=== PATIENT | male | born 1945 | race Caucasian/White ===

== ENCOUNTER → 2020-11-18 12:41 | Outpatient (CLI) | payer MEDICARE, SELFPAY ==
--- NOTE | ~2020-11-18 | XR_ITS ---
XR chest 2V DATE: 11/18/2020 12:57 INDICATION: Shortness of breath TECHNIQUE: PA and lateral views COMPARISON: None FINDINGS: Status post anterior cervical spine surgical fusion. Bilateral hyperinflation and relative flattening the diaphragm, consistent with COPD. No pulmonary in filtrate or consolidation, pleural effusion or pulmonary vascular congestion or pneumothorax. Normal heart size. No hilar or mediastinal enlargement. IMPRESSION: COPD Reviewed, dictated and finalized at location A. IMPRESSION: COPD
== END ==
PROVIDERS: PCP Family Medicine; Visit Provider Family Medicine
DX: R06.02 Shortness of breath (principal); J44.9 Chronic obstructive pulmonary disease, unspecified
CPT/HCPCS: 71046

== ENCOUNTER 2021-04-28 10:03 | Outpatient (CLI) | payer MEDICARE, SELFPAY ==
--- NOTE | 2021-04-28 12:47 | WPDPFTINT ---
PFT Procedure Performed PFT Procedure Performed Spirometry with Pre/Post Bronchodilator Plethysmography (Lung Vol) Diffusing Cap (DLCO) Flow Vol Loop PFT Interpretation This is a pulmonary function test with pre and post-bronchodilator spirometry, plethysmography and diffusing capacity. The test was performed and results interpreted in accordance with the 2019 and 2005 ATS/ERS Task Force guidelines respectively using the Global Lung Function Initiative-2012 reference equations. Patient demonstrated good effort and cooperation. Reproducibility criteria were met. The quality of the pre bronchodilator spirometry maneuver was Grade B and post bronchodilator spirometry maneuver was Grade A. Findings: Spirometry: there is decreased maximal expiratory airflow at all lung volumes with concave expiratory flow tracing. The contour the inspiratory flow tracing is normal. The pre bronchodilator FVC is 3.77 L, 91% predicted. The pre bronchodilator FEV1 is 2.21 L, 71% predicted. The FEV1: FVC ratio is 59%. The post bronchodilator FVC is 4.16 L, representing a 10% increase. The post bronchodilator FEV1 is 2.48 L, representing a 12% increase. Plethysmography: The total lung capacity is 9.15 L, 130% predicted. The functional residual capacity is 5.30 L, 141% predicted. The residual volume is 4.20 L, 167% predicted. Diffusing capacity: The absolute diffusion capacity is 21.6, 85% predicted. The diffusing capacity corrected for alveolar volume is 3.51, 91% predicted. Impression: There is a mild obstructive abnormality with significant improvement after inhaling a single dose of albuterol. The increase in residual volume is consistent with air trapping from an obstructive abnormality. Hyperinflation is present is demonstrated by the increase in functional residual capacity and total lung capacity and is consistent with an obstructive abnormality. The diffusing capacity is normal. There are no prior studies for comparison
== END 2021-04-28 10:04 | disposition home or self-care (01) ==
LOC: ANHPFT 10:04
PROVIDERS: PCP Family Medicine; Visit Provider Internal Medicine Pulmonary Disease
DX: R06.00 Dyspnea, unspecified (principal); R94.2 Abnormal results of pulmonary function studies
CPT/HCPCS: 94060; 94726; 94729

== ENCOUNTER 2021-10-26 00:26 | Day surgery (SDC) | payer MEDICARE, SELFPAY ==
[2021-10-11 10:09] VITALS: BMI 29.4
[2021-10-26 08:50] VITALS: BP 118/70; PULSE 63; RESP 18; TEMP 36.3; O2SAT 97
[2021-10-26] MEDS: LACTATED RINGERS 1,000 ML 150 ML IV CONT (09:02)
--- NOTE | 2021-10-26 09:18 | WPDGICN ---
Assessment and Plan Assessment and plan (1) History of colon polyps: Code(s): Z86.010 - Personal history of colonic polyps Status: Acute Assessment and Plan: Patient has a personal history of colon polyps at most recent colonoscopy 2016 in 5 years prior to that. Plan is for surveillance colonoscopy now and consider this at 5 year intervals. GI Consult Note Consult date/time: 10/26/21 09:18 HPI: Robby Morales is a 76 year old male Presents for screening colonoscopy. Patient has a prior history of colon polyps. Most recently 2016 had adenomatous colon polyp at time of prior colonoscopy. Patient reports his current weight appetite and bowel movements are normal. He denies abdominal pain. He has had no bleeding. Family history is noncontributory. [facility] Past Medical History Medical History (Updated 10/26/21 @ 09:20 by Zaid Mcintosh MD) Hyperlipemia Prediabetes Family History Family History Father Diabetes mellitus Family history of Alzheimer's disease Sibling Family history of elevated blood lipids Malignant neoplasm of prostate Grandparent Family history of lung cancer Family history of malignant neoplasm of breast in first degree relative Social History Social History Smoking status: Current every day smoker Tobacco type: cigarettes Alcohol intake: current Alcohol use details: 1 drink weekly Living arrangements: with family Spiritual care concerns: No Meds Home Medications and Allergies Home Medications Medication Instructions Recorded Confirmed Type albuterol sulfate 90 mcg/actuation 2 inh INHALATION Q4H PRN #8.5 g 09/14/21 10/11/21 Rx aerosol inhaler sildenafil 100 mg tablet 100 mg PO DAILY PRN #15 tablet 09/14/21 10/11/21 Rx Allergies Allergy/AdvReac Type Severity Reaction Status Date / Time No Known Allergies Allergy Verified 10/26/21 08:49 Vital Signs Vital Signs - 24 hr 10/26/21 08:50 Temperature 97.3 F L Pulse Rate 63 Respiratory Rate 18 Blood Pressure 118/70 Pulse Oximetry 97 Exam Narrative: Physical exam reveals patient be alert. Vital signs stable. HEENT exam is unremarkable. Patient is anicteric. Lungs are clear to auscultation and percussion. Heart is without murmur or extra sounds. Abdominal exam bowel sounds are present soft nontender with no organomegaly. Digital external rectal exam is normal.
--- NOTE | 2021-10-26 09:31 | P.PNAN_ITS ---
Anes - Initial Pre Proc Eval Procedure: Operation Date: 10/26/21 10:00 Proposed Procedures p Screening Colonoscopy - Zaid Mcintosh MD Date/Time: 10/26/21 09:31 Surgeon: Zaid Mcintosh MD Pre Op Diagnosis: neoplasm screening Patient Data Age: 76 Gender: M Height: 1.78 m Weight: 90.2 kg Last Vital Signs Temp 36.3 C L 10/26/21 08:50 Pulse 63 10/26/21 08:50 Resp 18 10/26/21 08:50 BP 118/70 10/26/21 08:50 Pulse Ox 97 10/26/21 08:50 Allergies Allergy/AdvReac Type Severity Reaction Status Date / Time No Known Allergies Allergy Verified 10/26/21 08:49 Home Medications Medication Instructions Recorded Confirmed Type albuterol sulfate 90 mcg/actuation 2 inh INHALATION Q4H PRN #8.5 g 09/14/21 10/11/21 Rx aerosol inhaler sildenafil 100 mg tablet 100 mg PO DAILY PRN #15 tablet 09/14/21 10/11/21 Rx Patient hx anesthesia problems: none Family hx anesthesia problems: none Results Review: All pre-operative results and documents have been reviewed as part of the pre-operative evaluation. [facility] Past Medical History Medical History (Updated 10/26/21 @ 09:20 by Zaid Mcintosh MD) Hyperlipemia Prediabetes Family History Family History Father Diabetes mellitus Family history of Alzheimer's disease Sibling Family history of elevated blood lipids Malignant neoplasm of prostate Grandparent Family history of lung cancer Family history of malignant neoplasm of breast in first degree relative Social History Social History Smoking status: Current every day smoker Tobacco type: cigarettes Alcohol intake: current Alcohol use details: 1 drink weekly Living arrangements: with family Spiritual care concerns: No Anes - Eval Final PreProcedure Day of Procedure 10/26/21 09:31 Patient weight: overweight Heart: regular rate and rhythm Lungs: clear to auscultation and normal air movement Airway: Mallampati scale class II Neurological: alert and oriented Last oral intake: >/= 8 hours ASA classification: III Emergent: no Anesthetic plan: proceed Anesthesia type and monitoring: general GIVS and standard monitoring Results Review: All pre-operative results and documents have been reviewed as part of the pre-operative evaluation. Informed Consent: The patient's anesthetic plan and its attendant risks and benefits were discussed with the patient/family/POA. Questions were solicited and answers provided to the satisfaction of the patient/family/POA.
[2021-10-26 10:10] VITALS: BP 108/63; PULSE 71; RESP 28; O2SAT 96
[2021-10-26 10:20] VITALS: BP 109/71; PULSE 69; RESP 13; O2SAT 97
[2021-10-26 10:30] VITALS: BP 123/73; PULSE 65; RESP 18; O2SAT 99
== END 2021-10-26 10:39 | disposition home or self-care (01) ==
PROVIDERS: PCP Family Medicine; Visit Provider Internal Medicine Gastroenterology
PROC: 0DJD8ZZ Inspection of Lower Intestinal Tract, Via Natural or Artificial Opening Endoscopic (ICD-10-PCS; CPT 45378; principal; 2021-10-26 10:00)
DX: Z12.11 Encounter for screening for malignant neoplasm of colon (principal); D12.0 Benign neoplasm of cecum; K57.30 Diverticulosis of large intestine without perforation or abscess without bleeding; E78.5 Hyperlipidemia, unspecified; R73.03 Prediabetes; F17.210 Nicotine dependence, cigarettes, uncomplicated; Z79.51 Long term (current) use of inhaled steroids
CPT/HCPCS: 45385; 88305; J2704; J7120

== ENCOUNTER → 2021-11-30 13:25 | Outpatient (CLI) | payer MEDICARE, SELFPAY ==
--- NOTE | ~2021-11-30 | XR_ITS ---
XR knee LT min 4V 11/30/2021 13:41 Indication: Left knee pain Procedure: 4 views left knee Comparison: No prior studies for comparison. Findings: Moderate joint effusion. There is mild compartment osteoarthritis. No acute fracture or tra umatic malalignment. No significant soft tissue abnormality. No foreign bodies. 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 2: Moderate joint effusion Reviewed, dictated and finalized at location A. 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 2: Moderate joint effusion
== END ==
PROVIDERS: PCP Family Medicine; Visit Provider Family Medicine
DX: R20.0 Anesthesia of skin (principal); M17.12 Unilateral primary osteoarthritis, left knee; M25.462 Effusion, left knee; M25.562 Pain in left knee
CPT/HCPCS: 73564

== ENCOUNTER → 2021-12-15 08:32 | Outpatient (CLI) | payer MEDICARE, SELFPAY ==
--- NOTE | ~2021-12-15 | MR_ITS ---
EXAMINATION: MR knee LT wo con DATE: 12/15/2021 09:07 INDICATION: Left knee pain. TECHNIQUE: Magnetic resonance imaging (MRI) of the left knee was performed without intravenous contra st. Sequences included axial PD-weighted FS FSE, coronal PD-weighted FSE and PD-weighted FS FSE, sagi ttal PD-weighted FSE, and sagittal T2-weighted FS FSE. COMPARISON: Left knee radiographs 11/30/2021 FINDINGS: Medial compartment: There is a complex tear involving body and posterior horn of medial meniscus. There is extensive part ial thickness cartilage loss of femoral condyle and tibial condyle. There is focal full-thickness car [place] loss of tibial condyle involving the central articular surface with mild subchondral edema-lik e signal intensity. There are tiny osteophytes. Lateral compartment: Lateral meniscus is normal. There is shallow partial-thickness cartilage loss of tibial condyle. Ther e is deep partial thickness cartilage loss of femoral condyle involving the central articular surface . There are tiny osteophytes. Patellofemoral compartment: There is cartilage surface irregularity of patella. Trochlear cartilage is normal. Ligaments and tendons: The anterior and posterior cruciate ligaments are normal. Medial collateral ligament is normal. There are changes of partial tear of fibular collateral ligament proximally. There is mild patellar tendin opathy. Fluid: There is a moderate-sized knee joint effusion. There is mild prepatellar and superficial infrapatella r bursitis. IMPRESSION: 1. Severe chondrosis of medial compartment, moderate chondrosis of lateral compartment, mild chondros is of patellofemoral compartment. 2. Tear of medial meniscus. 3. Moderate-sized knee joint effusion. Reviewed, dictated and finalized at location A. IMPRESSION: 1. Severe chondrosis of medial compartment, moderate chondrosis of lateral comp artment, mild chondrosis of patellofemoral compartment. 2. Tear of medial meniscus. 3. Moderate-sized knee joint effusion.
== END ==
PROVIDERS: PCP Family Medicine; Visit Provider Family Medicine
DX: S83.242A Other tear of medial meniscus, current injury, left knee, initial encounter (principal)
CPT/HCPCS: 73721

== ENCOUNTER 2022-03-22 00:47 | Day surgery (SDC) | payer MEDICARE, SELFPAY ==
[2022-03-17 14:07] VITALS: BMI 29.5
--- NOTE | 2022-03-17 14:18 | PC.NURSE ---
Report to the Outpatient Waiting Room, entrance under the green pavilion located off [facility], at time ___1000____ on date __03/22/22 . OR Time: ___1200 . Time changes happen often and if your time is changed the preop area will call you the afternoon before. - You and your visitor will be asked to self-screen and do not enter if you have any COVID symptoms. - Only one visitor and NO children visitors are allowed at this time. - The patient visitor is requested to leave or wait in car when not with patient due to restrictions. - A mask is required within the hospital. Patients may have clear liquids (water, carbonated beverages, clear teas, apple juice) until 3 hours prior to surgery (0900 AM) with a maximum of 20 ounces. - No food from midnight until time of surgery - Infants may have breast milk until 4 hours before surgery, formula 6 hours prior to surgery. - Children will be allowed to drink immediately following surgery. If applicable, please bring a bottle or sippy cup to assist with drinking. Juice, water, soda, and popsicles are readily available. For infants on formula, please bring formula the day of surgery. Pacifiers are allowed. Take the following medications with a SIP of water the morning of surgery: _TYLENOL & INHALER IF NEEDED_ Medications to discontinue per physician _N/A_, Date to take last dose Please no make-up, nail macedonian, hairspray, perfume, deodorant, or body powder the day of surgery. No jewelry (including any body piercings) or valuables the day of surgery, leave them at home. Please take a shower or bath the night before, or the morning of, surgery with an antibacterial soap. Wear comfortable, loose fitting clothing. Children are encouraged to wear pajamas. - Jewelry must be removed prior to entering the operating room. Rings and piercings that are not removed may be cut off. - The hospital will not accept responsibility for valuables. - Please leave all valuables, including medications, at home the day of surgery. If you are going home after surgery, a licensed industrial truck driver must drive you home. - NO public transportation without another adult. - We recommend that an adult stay with you for 24 hours following discharge. - We also recommend that you do not drive, make important decision, drink alcoholic beverages, or take any drugs that were not prescribed by your health care provider for at least 24 hours after your discharge time. For Pediatric surgeries, we recommend two adults accompany the child home (only one inside the building at this time). Follow any additional instructions given to you from your surgeon. If you or anyone in your household have experienced Covid symptoms in the past week, please notify your surgeon or the nurse liaison at the phone number below for possible testing. Telephone instructions given to ___PT and asked if any additional questions and then verbalized understanding. Patient advised to call surgeon office or pre surgery nurse liaison [phone] if any additional questions.
[2022-03-22] VITALS (11 sets, daily range): BP systolic 120–152; BP diastolic 60–78; PULSE 49–68; RESP 10–18; TEMP 36.3–36.4; O2SAT 94–100
--- NOTE | 2022-03-22 11:04 | P.PNAN_ITS ---
Anes - Initial Pre Proc Eval Procedure: Operation Date: 03/22/22 12:00 Proposed Procedures p Left Knee Arthroscopy with Meniscectomy - Alvarado Muñoz MD Date/Time: 03/22/22 11:04 Surgeon: Alvarado Muñoz MD Pre Op Diagnosis: left knee medial meniscal tear Patient Data Age: 76 Gender: M Height: 1.78 m Weight: 93.18 kg Allergies Allergy/AdvReac Type Severity Reaction Status Date / Time No Known Allergies Allergy Verified 03/17/22 14:04 Home Medications Medication Instructions Recorded Confirmed Type albuterol sulfate 90 mcg/actuation 2 inh inhalation Q4H PRN shortness 09/14/21 03/17/22 Rx aerosol inhaler (Ventolin HFA) of breath or wheezing #8.5 grams sildenafil 100 mg tablet 100 mg PO DAILY PRN sexual 09/14/21 03/17/22 Rx activity #15 tabs naproxen sodium 220 mg tablet 220 mg PO Q12H PRN Pain 12/22/21 03/17/22 History (Aleve) acetaminophen 650 mg 1,300 mg PO Q12H PRN Pain 03/17/22 03/17/22 History tablet,extended release (Tylenol Arthritis Pain) Patient hx anesthesia problems: none Family hx anesthesia problems: none Results Review: All pre-operative results and documents have been reviewed as part of the pre- operative evaluation. [facility] Past Medical History Medical History Hyperlipemia Medial meniscus tear left knee Nicotine abuse Prediabetes Surgical History Surgical History History of back surgery History of discectomy History of neck surgery Family History Family History Father Diabetes mellitus Family history of Alzheimer's disease Sibling Family history of elevated blood lipids Malignant neoplasm of prostate Multiple sclerosis Grandparent Family history of lung cancer Family history of malignant neoplasm of breast in first degree relative Social History Social History Smoking packs per day: 0.3 Smoking cigarettes per day: 6.0 Years smoked: 57 Smoking pack-years: 17.10 Smoking status: Former smoker Tobacco type: cigarettes Second hand tobacco smoke exposure: No Smoking end date: 11/26/20 Alcohol intake: current Drinks per week: 1 Alcohol use details: 1 drink weekly Substance use: never Substance use type: does not use Living arrangements: with family Spiritual care concerns: No Anes - Eval Final PreProcedure Day of Procedure 03/22/22 11:04 Patient weight: overweight Heart: regular rate and rhythm Lungs: clear to auscultation Airway: Mallampati scale class II Neurological: alert and oriented Last oral intake: >/= 8 hours ASA classification: III Emergent: no Anesthetic plan: proceed Anesthesia type and monitoring: general LMA and standard monitoring Results Review: All pre-operative results and documents have been reviewed as part of the pre- operative evaluation. Informed Consent: The patient's anesthetic plan and its attendant risks and benefits were discussed with the patient/family/POA. Questions were solicited and answers provided to the satisfaction of the patient/family/POA.
[2022-03-22] MEDS: KETOROLAC 15 MG/ML VIAL (*BKC) IV PUSH (11:10)
[2022-03-22] MEDS: LACTATED RINGERS 1,000 ML 30 ML IV CONT ×2 (11:10→13:16)
[2022-03-22] MEDS: ACETAMINOPHEN 500 MG TABLET 1000 MG PO (11:10)
[2022-03-22] MEDS: fentaNYL CITRATE INJ (*CRX) 100 MCG/2 ML VIAL 50 MCG IV PUSH (11:12)
--- NOTE | 2022-03-22 11:35 | WPDHPUPDATE1 ---
History and Physical Update Update Date/Time: 03/22/22 11:35 History and Physical has been reviewed, including an updated exam of the patient. There are NO changes in the patient's condition. Risks, benefits, and alternatives have been discussed and questions answered. Patient agrees to proceed with procedure.
[2022-03-22] MEDS: ceFAZolin 2 GM/D5W 50 ML 2 GM/50 ML BAG IVPB (12:00)
[2022-03-22] MEDS: LIDOCAINE HCL 1% PF 30 ML VIAL INFILTRATE (12:40)
--- NOTE | 2022-03-22 13:22 | P.OP_ITS ---
Procedure Note - Detailed Date of Procedure 03/22/22 Pre-op Diagnosis left knee medial meniscal tear Post-op Diagnosis Same Procedure Performed Left knee arthroscopy partial medial meniscectomy Surgeon Alvarado Muñoz MD Anesthesia General Description of Procedure The patient was identified and proper site identified and he was taken to the operating room, transferred to the OR table placing him supine taking care to pad the torso and extremities. After general anesthetic induction and intubation, a nonsterile tourniquet was placed high on the left thigh but was not inflated. The left lower extremity was positioned, prepped and draped in usual sterile fashion. 10 cc of 1% lidocaine was injected into the subcutaneous tissue in the area of the portals at start of the procedure, and an additional 10 at the end. The portals were established and the arthroscopy was carried out. Articular cartilage anteriorly and laterally did show some fraying fibrillation consistent with grade 2 and grade 3 changes. There was some fraying of the apex of the lateral meniscus. Cruciate ligaments were in continu ity. Medially there was complex tearing of the medial meniscus from the posterior horn well into the midbody. There was a portion of the meniscus that was folded under itself at the midbody. All the unstable meniscus was debrided back to a stable rim with basket forceps and a shaver. Throughout the procedure ArthroCare Wand was used for hemostasis. In the medial gutter there was a full synovium at the edge of the joint surface which was prominent. This was removed and the area cauterized. Lateral gutter and pouch were centrally clear. The knee was flushed with a copious amount of arthroscopic fluid and equipment was removed. Portals were closed with three O nylon suture and a sterile dressing was applied. He tolerated the procedure well, was awakened, extubated and taken to recovery area in stable condition. There were no known intraoperative complications. Estimated blood loss was negligible; he received perioperative antibiotics. Estimated Blood Loss 10 Tourniquet Time 0 Drains No Packing No Pathology None sent Complications No immediate complications Condition Stable Disposition PACU
[2022-03-22] MEDS: fentaNYL CITRATE INJ (*CRX) 100 MCG/2 ML VIAL 25 MCG IV PUSH ×6 (13:33→14:16)
[2022-03-22] MEDS: HYDROmorphone HCL INJ (*CRX) 1 MG/ML SYR 0.5 MG IV PUSH (14:22)
[2022-03-22] MEDS: oxyCODONE HCL (*CRX) 5 MG TAB IR PO (15:14)
== END 2022-03-22 16:30 | disposition home or self-care (01) ==
PROVIDERS: PCP Family Medicine; Visit Provider Orthopaedic Surgery
PROC: (CPT 29870; principal; 2022-03-22 12:00)
DX: M23.222 Derangement of posterior horn of medial meniscus due to old tear or injury, left knee (principal); M25.462 Effusion, left knee; M79.89 Other specified soft tissue disorders; E78.5 Hyperlipidemia, unspecified; R73.03 Prediabetes; Z87.891 Personal history of nicotine dependence; Z79.51 Long term (current) use of inhaled steroids
CPT/HCPCS: 29881; A9270; J0690; J1100; J1170; J1885; J2405; J2704; J3010; J7120

== ENCOUNTER → 2023-09-12 10:42 | Outpatient (CLI) | payer MEDICARE, SELFPAY ==
--- NOTE | ~2023-09-12 | XR_ITS ---
EXAMINATION: XR humerus RT, XR elbow RT 2V, XR shoulder RT min 2V DATE: 09/12/2023 11:24 INDICATION: Right shoulder and proximal humeral pain TECHNIQUE: 1. 4 views of the right shoulder including AP internally rotated, AP externally rotated, Grashey and transscapular Y views were obtained. 2. AP and lateral views of the right humerus were obtained on overlapping proximal and distal images. 3. AP and lateral views of the right elbow were obtained. COMPARISON: None. FINDINGS: Bone alignment is normal from the right shoulder through the elbow. No fracture. Polyarticular osteoa rthritis, moderate severity at the right acromioclavicular joint and mild at the right glenohumeral a nd elbow joints. No elbow joint effusion. Bone island at the right humeral head. Rotator cuff calcifi c tendinitis at the distal supraspinatus and/or infraspinatus tendons. Partially visualized plate and screw fixation for lower cervical anterior spinal fusion. Visualized portion of the lungs are clear. IMPRESSION: 1. 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 No acute osseous abnormality. 2. Right rotator cuff calcific tendinitis. Reviewed, dictated and finalized at location A. H RIB GRADER IMPRESSION: 1. 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 No acute osseous abnormality. 2. Right rotator cuff calcific tendinitis. IMPRESSION: 1. 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 No acute osseous abnormality. 2. Right rotator cuff calcific tendinitis.
== END ==
PROVIDERS: PCP Family Medicine; Visit Provider Nurse Practitioner
DX: M19.011 Primary osteoarthritis, right shoulder (principal); M75.31 Calcific tendinitis of right shoulder; M19.021 Primary osteoarthritis, right elbow
CPT/HCPCS: 73030; 73060; 73070

== ENCOUNTER 2023-09-25 08:16 | Outpatient (CLI) | payer MEDICARE, SELFPAY ==
--- NOTE | ~2023-09-25 | MR_ITS ---
MRI of the right shoulder Technique: Axial proton-density fat-sat images, coronal proton density fat-sat and T2 fat-sat images, and sagittal T1-weighted and T2 fat-sat images were acquired. Clinical History: Pain Findings: There is severe AC joint degenerative change, joint space narrowing, reactive marrow edema, and bony productive change, particularly at the acromion, with subacromial spur present. Coracoclavi cular, coracoacromial, coracohumeral ligaments are intact. Supraspinatus and infraspinatus tendons are intact, without partial or full-thickness tear. There is moderate supraspinatus tendinosis distally. Subscapularis tendon is intact, with minimal tendinosis. Tendon of long head of the biceps is intact. No definite labral tear identified. Inferior glenohumeral ligament is intact. No significant glenohumeral joint effusion or degenerative change. There is mild fluid distention of the subacromial/subdeltoid bursa. No muscle atrophy or weston a. Impression: Advanced AC joint degenerative change. Mild subacromial/subdeltoid bursitis. Rotator cuff tendinosis without tear. Reviewed, dictated and finalized at [facility]. Impression: Advanced AC joint degenerative change. Mild subacromial/subdeltoid bursitis. Rotator cuff tendinosis without tear.
--- NOTE | ~2023-09-25 | MR_ITS ---
EXAMINATION: MR humerus RT wo con DATE: 09/25/2023 09:22 INDICATION: Strain of muscle, fascia and tendons at the right upper arm presenting with limited range of motion the right shoulder and pain and numbness radiating to the right elbow. TECHNIQUE: Magnetic resonance imaging (MRI) of the right upper arm was performed without intravenous contrast. Sequences included axial, sagittal and coronal T1-weighted FSE and fluid sensitive FSE STIR . COMPARISON: None. FINDINGS: Bone alignment is normal. Normal marrow signal throughout with no reactive edema, fracture or patholo gic marrow replacing process. Small amount of fluid in the subacromial/subdeltoid bursa consistent wi th bursitis. Small amount of fluid in the pelvis also small amount of fluid along the long head bicep s tendon sheath disproportionate to the physiologic amount fluid in the glenohumeral joint space cons istent with mild bicipital tenosynovitis. Tendons and musculature in the right upper arm appear temitope l with no atrophy or abnormal muscle signal to suggest muscle strain. Visualized amount fluid in the right elbow joint. Neurovascular structures in the right upper arm appear unremarkable. No pathologic ally enlarged right axillary lymphadenopathy. IMPRESSION: 1. Right subacromial/subdeltoid bursitis and mild long head bicipital tenosynovitis. Otherwise unrema rkable right upper arm MRI. Reviewed, dictated and finalized at location A. IMPRESSION: 1. Right subacromial/subdeltoid bursitis and mild long head bicipital tenosynov itis. Otherwise unremarkable right upper arm MRI.
== END 2023-09-25 08:17 ==
LOC: GOSHIMG 08:17
PROVIDERS: PCP Family Medicine; Visit Provider Nurse Practitioner
DX: S46.211A Strain of muscle, fascia and tendon of other parts of biceps, right arm, initial encounter (principal); M75.51 Bursitis of right shoulder; M75.21 Bicipital tendinitis, right shoulder; X58.XXXA Exposure to other specified factors, initial encounter
CPT/HCPCS: 73218; 73221

== ENCOUNTER 2023-11-02 08:00 | Outpatient (RCR) | payer MEDICARE, SELFPAY ==
[2023-10-04 08:02] VITALS: BP_SYST 84
--- NOTE | 2023-10-04 08:58 | OPREHPOC ---
Outpatient Therapy Plan of Care This is a Multidisciplinary Plan of Care that may contain components documented by all disciplines (PT, OT, and ST.) PT Problem 1 PT Problem #1 Knowledge Deficit PT Goal 1 Goal Pt to be IND with issued HEP Target Visit 8 PT Problem 2 PT Problem #2 Pain PT Goal 1 Goal Pt to report shoulder pain no greater than 3/10 in the last week. Target Visit 8 PT Goal 2 Goal Pt to report 75% improvement in overall symptoms Target Visit 8 PT Problem 3 PT Problem #3 Impaired Range of Motion PT Goal 1 Goal Pt to improve active shoulder abduction ROM to 120 deg without an increase in pain. Target Visit 8 PT Goal 2 Goal Pt to improve functional shoulder int rot to within 2 spinal levels of L side. Target Visit 8 PT Problem 4 PT Problem #4 Impaired Strength PT Goal 1 Goal Pt to improve R shoulder strength to grossly 4+/5. Target Visit 8 PT Goal 2 Goal pt to be able to lift 5lb overhead without compensations.
--- NOTE | 2023-10-04 08:59 | PTOPEVAL1 ---
Assessment and note entered by Melania Montoya, PT, DPT Evaluation Information Assessment Status Evaluation Diagnosis R shoulder pain Onset 1 month Subjective Information Pt reports R shoulder pain for the last month, he declines any shoulder issued prior to that. He states he was working with a saw and the saw pushed his arm into shoulder extension with a good amount of force. 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 He states his pain is not bad if he does not lift it above shoulder height. He reports it wakes him up in the night. Pt likes to do a lot of wood working. Reported Pain Level Pain Score 0: Self Report Assessment PT Clinical Summary Robby presents to therapy today for his initial evaluation with a diagnosis of R shoulder pain. He demonstrates s/s consistent with R RTC tendonitis . He demonstrates decreased active and passive R shoulder ROM as well as decreased strength when compared to his L shoulder. He functional mobility is limited by strength and pain. Skilled therapy services are indicated to address the deficits noted above, to manage pain, and to return to PLOF . Plan of Care Interventions Electrical Stimulation,Gait Training,Hot Pack/Cold Pack,Manual Therapy,Neuro Re-education,Patient/ Caregiver Educati,Therapeutic Activities, Therapeutic Exercise PT Services Indicated Yes Treatment Frequency and 2x/wk for 8 visits Duration These treatments will address the objective and functional deficits as defined above. The patient will be advanced safely and appropriately in order for the patient to progress towards his/her prior level of function. Additional exercises will be introduced and as well as a comprehensive home exercise program upon discharge, if needed, ?to ensure carryover of functional gains achieved in the clinic. This treatment plan has been reviewed and agreement upon by the patient.
--- NOTE | 2023-10-24 12:42 | PCPTNOTE ---
Patient called to cancel due to being out of town.
--- NOTE | 2023-10-26 10:13 | PCPTNOTE ---
Patient canceled this appointment due to being out of town.
[2023-11-02 08:00] VITALS: BP_SYST 140
--- NOTE | 2023-11-02 10:52 | PTOPDC ---
Assessment and note entered by Melania Montoya, PT, DPT Evaluation Information Assessment Status Discharge Diagnosis R shoulder pain Onset 1 month Subjective Information Pt states his shoulder is about the same as when he started therapy. He states his shoulder does not keep him from doing anything, other than sleeping. He states he still has severe difficultly getting to sleep because of his shoulder. Reported Pain Level Pain Score 2: Self Report Assessment PT Clinical Summary Robby presents to therapy today for his progress report following 5 visits of skilled therapy to treat his diagnosis of R shoulder pain. He demonstrates improve shoulder motion in all directions with decreased pain reports as well. He demonstrates improved shoulder strength but still decreased from his L shoulder. His HEP was progressed this date. He plans to continue his HEP IND until his follow up with his PCP in December. Discussed treatment option if still having pain at his follow up. Pt will be d/c'ed at this time per his request. Plan of Care PT Services Indicated No
== END 2023-11-02 12:49 | disposition home or self-care (01) ==
LOC: ANHGOSHPT 08:00
PROVIDERS: PCP Family Medicine; Visit Provider Nurse Practitioner
DX: M25.511 Pain in right shoulder (principal)
CPT/HCPCS: 97014; 97110; 97112; 97161; 97530; G0283

== ENCOUNTER 2024-08-13 13:07 | Outpatient (CLI) | payer MEDICARE, SELFPAY ==
--- NOTE | ~2024-08-13 | CT_ITS ---
EXAMINATION: CT abdomen pelvis wo/w con DATE: 08/13/2024 13:46 INDICATION: Gross hematuria TECHNIQUE: Computed tomography (CT) of the abdomen and pelvis was performed without intravenous contr ast. CT of the abdomen and pelvis was then performed with a total of 130 mL Omnipaque-350 intravenous contrast using a double-bolus technique for simultaneous opacification of the renal parenchyma and r enal collecting system. Automated exposure control and iterative reconstruction technique were employ ed. The dose-length product was 1940.13 mGy-cm. COMPARISON: None FINDINGS: Discoid atelectasis in the lingula, right middle and bilateral lower lobes. Heart size normal. Athero sclerotic coronary artery calcific lesion. No pericardial effusion. Small sliding-type hiatal hernia. Liver, gallbladder, spleen, pancreas, bilateral adrenal glands are normal. Bilateral nonobstructing renal stones measuring 5 mm the upper pole of the right kidney and 4 mm at the lower pole of the left kidney. 1.4 cm exophytic cyst at the mid right kidney. No ureteral stones or hydronephrosis. No urot helial irregularities identified along the bilateral renal collecting systems and contrast opacified portions of the bilateral ureters. There is a 2.2 cm mass with lobular margins along the nondependent lateral wall of the bladder suspicious for bladder malignancy. There are some trabeculation of the b ladder wall is suggestion of developing small diverticulum along the left anterior bladder. Mild pros tatomegaly measuring 4.6 x 3.0 cm. Mild sigmoid diverticulosis without adjacent from trace stranding to suggest diverticulitis. Bowels are otherwise normal including a normal appendix. There is calcifie d atherosclerosis of the normal caliber abdominal aorta and many of the other arteries. No free intra peritoneal gas or fluid. No pathologically enlarged abdominal or pelvic lymphadenopathy. Is severe lo wer lumbar spondylosis. IMPRESSION: 1. 2.2 cm intraluminal mass at the right-sided the bladder which concerning for bladder cancer. Recom mend cystoscopy for further evaluation. 2. Bilateral nonobstructing nephrolithiasis. 3. Small sliding-type hiatal hernia. Reviewed, dictated and finalized at location A. [facility] IMPRESSION: 1. 2.2 cm intraluminal mass at the right-sided the bladder which concerning for bladder cancer. Recommend cystoscopy for further evaluation. 2. Bilateral nonobstructing nephrolithiasis. 3. Small sliding-type hiatal hernia.
--- OUTSIDE RECORDS SUMMARY | 2024-08-13 13:17 | XMS_ITS | Referral Summary ---
Author Organization [facility] Address [address] [place] [address] Care Team Providers Care Barrel Drum Cutter Name Role Phone Alexsander Denny MD Primary Care Provider [phone] Source Comments [facility],non-owned Affiliates and Associated Physician Practices is amultiple site organization consisting of ambulatory clinics and hospital sitesin [place], [place], [place] and [place]. This disclosure is being madepursuant to the Care Everywhere program and may not contain all information available regarding this patient. Last updated 18.[facility] Social History Tobacco Use Types Packs/Day Years Used Date Smoking Tobacco: Never Assessed Sex and Gender Information Value Date Recorded Sex Assigned at Not on file Gender Identity Not on file Sexual Orientation Not on file Plan of Treatment Not on file Care Teams Barrel Drum Cutter Relationship Specialty Start Date End Date Alexsander Denny MD [address] [place] [id number] PCP - General 10/27/21
--- OUTSIDE RECORDS SUMMARY | 2024-08-13 13:17 | XMS_ITS | Patient Health Summary ---
Author Organization [facility] Address [address] [place] [address] Care Team Providers Care Lease Operator Name Role Phone Alexsander Denny MD Primary Care Provider [phone] Note from [facility] [place],non-owned Affiliates and Associated Physician Practices is amultiple site organization consisting of ambulatory clinics and hospital sitesin [place], [place], [place] and [place]. This disclosure is being madepursuant to the Care Everywhere program and may not contain all information available regarding this patient. Last updated 18.[facility] Social History Tobacco Use Types Packs/Day Years Used Date Smoking Tobacco: Never Assessed Sex and Gender Information Value Date Recorded Sex Assigned at Not on file Gender Identity Not on file Sexual Orientation Not on file Procedures * GROSS + MICRO EXAM(Performed 04/30/1999) Results * GROSS + MICRO EXAM (04/30/1999 11:12 AM CDT) Result CASE NUMBER [id number] Comment: ORDERING PHYSICIAN ??SANDHYA EVANS SPECIMEN TYPE ?Intervertebral Disc-C5-6 Date ? 04/30/1999 Physician ?Dr. Adam Gross Description ? The specimen is received in a single formalin-filled container labeled with the patient's name and disc C5-6 and consists of numerous jiménez white feathery irregularly-shaped tissue fragments which measure in aggregate 3.5 x 2 x .5 cm. ??Certifed Refrigeration Operator sections are submitted in one cassette. ??LM/jmc Microscopic Exam ? Microscopic examination reveals cartilaginous fragments with fibrillary degenerative change. ??No nerve fragments are seen. No evidence of any granulomas, malignancy is seen. A few unremarkable bony spicules are also noted. ??SR/jmc Diagnosis ? I. ?Disc, C5,C6 ?A. ?Nucleus pulposus with degenerative change ?B. ?Bone. SR/C Construction Trades Teacher ? [facility] Pathologist ?Malika Meza M.D. [place]. ?05/03/1999 1216 <1> CPT code ? 40836/42568 MISCELLANEOUS SAMPLES / Unknown 04/30/1999 11:12 AM CDT 04/30/1999 11:12 AM CDT Historical Provider LAB - PATHOLOGY/C YTOLOGY ORDERABLES Care Teams Lease Operator Relationship Specialty Start Date End Date Alexsander Denny MD [address] [place] [phone] PCP - General 10/27/21
--- OUTSIDE RECORDS SUMMARY | 2024-08-13 13:17 | XMS_ITS | Clinical Summary ---
Author Organization [facility] Address [address] [place] [phone] Phone Care Team Providers Care Pastry Supervisor Name Role Phone Alexsander Denny MD Primary Care Provider [phone] Social History Tobacco Use Types Packs/Day Years Used Date Smoking Tobacco: Never Assessed Sex and Gender Information Value Date Recorded Sex Assigned at Not on file Legal Sex Male 12:44 PM CDT Gender Identity Not on file Sexual Orientation Not on file Plan of Treatment Health Maintenance Due Date Last Done Comments DTAP/TDAP/TD VACCINES (1 - Tdap) 09/17/1966 PNEUMOCOCCAL VACCINE 65+ YEARS (1 of 1 - PCV) 09/17/18 98 ZOSTER VACCINE (1 of 2) 09/17/1997 RSV VACCINE (60+ or ) (1 - 1-dose 75+ series) 09/17/2022 INFLUENZA VACCINE (#1) 2024 Insurance MEDICARE PART A AND B [employer] MEDICARE SUPP AESSI Care Teams Pastry Supervisor Relationship Specialty Start Date End Date Alexsander Denny MD [address] [place] [address] PCP - General Family Practice 02/23/17
--- OUTSIDE RECORDS SUMMARY | 2024-08-13 13:17 | XMS_ITS | Clinical Summary ---
Author Organization [facility] Address [address] [place] [address] Care Team Providers Care Supply Chain Manager Name Role Phone Alexsander Denny MD Primary Care Provider [phone] Source Comments [facility],non-owned Affiliates and Associated Physician Practices is amultiple site organization consisting of ambulatory clinics and hospital sitesin [place], [place], [place]. This disclosure is being madepursuant to the Care Everywhere program and may not contain all information available regarding this patient. Last updated 18.[facility] Social History Tobacco Use Types Packs/Day Years Used Date Smoking Tobacco: Never Assessed Sex and Gender Information Value Date Recorded Sex Assigned at Not on file Gender Identity Not on file Sexual Orientation Not on file Plan of Treatment Health Maintenance Due Date Last Done Comments HEPATITIS C SCREENING 09/13/1965 DTAP/TDAP/TD VACCINES (1 - Tdap) 09/17/1966 PNEUMOCOCCAL VACCINE 50+ (1 of 1 - PCV) 09/17/1997 ZOSTER VACCINE (1 of 2) 09/17/1997 Respiratory Syncytial Virus (RSV) Vaccine Pt: or over 60 yrs (1 - 1-dose 75+ series) 09/17/2022 COVID-19 VACCINE ( - 2023-2 5 season) 2024 INFLUENZA VACCINE (#1) 2024 DEPRESSION SCREENING 07/10/2024 HEPATITIS B VACCINE Aged Out No longe r eligible based on patient's age to complete this topic HIB VACCINE Aged Out No longer eligi ble based on patient's age to complete this topic HPV VACCINE Aged Out No longer eligi ble based on patient's age to complete this topic MENINGOCOCCAL (Group B) VACCINE Aged Out No longer eligible based on patient's age to complete this topic MENINGOCOCCAL VACCINE Aged Out No alexey sruthi eligible based on patient's age to complete this topic Care Teams Supply Chain Manager Relationship Specialty Start Date End Date Alexsander Denny MD [address] [place] [address] PCP - General 10/27/21
[2024-08-13 20:46] LABS: Estimated Glomerular Filt Rate 59
== END 2024-08-13 13:08 | disposition home or self-care (01) ==
PROVIDERS: PCP Family Medicine; Visit Provider Urology
DX: N20.0 Calculus of kidney (principal); K44.9 Diaphragmatic hernia without obstruction or gangrene; R31.9 Hematuria, unspecified
CPT/HCPCS: 74178; Q9967

== ENCOUNTER 2024-10-03 00:07 | Day surgery (SDC) | payer MEDICARE, SELFPAY ==
--- NOTE | 2024-09-19 13:38 | PC.NURSE ---
Report to the Outpatient Waiting Room, entrance under the green pavilion located off [facility], at time _7 AM on date __10/03/24 . Planned Procedure Time: __9 AM .? Time changes happen often and if your time is changed the preop area will call you the afternoon before. - You and your visitor will be asked to self-screen and do not enter if you have any COVID symptoms. Please call surgeon if you need to reschedule. - A mask is optional within the hospital at this time. Patients may have clear liquids (water, carbonated beverages, clear teas, apple juice) until 3 hours prior to surgery ( 6 AM) with a maximum of 20 ounces. - No food from midnight until time of surgery and no smoking, or chewing tobacco (or any form of nicotine). No chewing gum, candy or mints. Take only the following medications with a SIP of water on the morning of surgery: ____INHALER IF NEEDED DO NOT STOP ANY OF YOUR OTHER PRESCRIPTION MEDICATIONS PRIOR TO SURGERY EXCEPT THE FOLLOWING Hold all vitamins and supplements for 3 days per anesthesiologist. Medications to discontinue per physician NONE Please no make-up, nail bangladeshi, hairspray, perfume, deodorant, or body powder the day of surgery.? No jewelry (including any body piercings) or valuables the day of surgery, leave them at home.? Please take a shower or bath the night before, or the morning of, surgery with an antibacterial soap.? Wear comfortable, loose fitting clothing.? Children are encouraged to wear pajamas. - Jewelry must be removed prior to entering the operating room.? Rings and piercings that are not removed may be cut off. - The hospital will not accept responsibility for valuables.? - Please leave all valuables, including medications, at home the day of surgery. If you are going home after surgery, a licensed class a regional truck driver must drive you home.? - NO public transportation without another adult if you receive anesthesia. - We recommend that an adult stay with you for 24 hours following discharge. - We also recommend that you do not drive, make important decision, drink alcoholic beverages, or take any drugs that were not prescribed by your health care provider for at least 24 hours after your discharge time. Follow any additional instructions given to you from your surgeon. Telephone instructions given to __PATIENT and asked if any additional questions and then verbalized understanding. Patient advised to call surgeon office or pre surgery nurse liaison [phone] if any additional questions.
[2024-09-19 13:52] VITALS: BMI 31.8
[2024-10-03] VITALS (11 sets, daily range): BP systolic 96–151; BP diastolic 56–79; PULSE 49–66; RESP 10–18; TEMP 36.2; O2SAT 93–100
--- OUTSIDE RECORDS SUMMARY | 2024-10-03 00:11 | XMS_ITS | Clinical Summary ---
Author Organization [facility] Address [address] [place] [address] Care Team Providers Care Party Supply Specialist Name Role Phone Alexsander Denny MD Primary Care Provider [phone] Source Comments [facility],non-owned Affiliates and Associated Physician Practices is amultiple site organization consisting of ambulatory clinics and hospital sitesin [place], [place], [place] and [place]. This disclosure is being madepursuant to the Care Everywhere program and may not contain all information available regarding this patient. Last updated 18.[facility] Social History Tobacco Use Types Packs/Day Years [...] to complete this topic MENINGOCOCCAL (Group B) VACC INE SHARED DECISION-MAKING Aged Out No longer eligibl e based on patient's age to complete this topic MENINGOCOCCAL GROUPS A/C/Y/W VACCINE Aged Out No longer eligible b ased on patient's age to complete this topic Care Teams Party Supply Specialist Relationship Specialty Start Date End Date Alexsander Denny MD [address] [place] [place] [address] PCP - General 10/27/21
--- OUTSIDE RECORDS SUMMARY | 2024-10-03 00:11 | XMS_ITS | Clinical Summary ---
Author Organization [facility] Address [address] [place] [phone] Phone Care Team Providers Care Guest Services Officer Name Role Phone Alexsander Denny MD Primary Care Provider [phone] Social History Tobacco Use Types Packs/Day Years Used Date Smoking Tobacco: Never Assessed Sex and Gender Information Value Date Recorded Sex Assigned at Not on file Legal Sex Male 12:44 PM CDT Gender Identity Not on file Sexual Orientation Not on file Plan of Treatment Health Maintenance Due Date Last Done Comments DTAP/TDAP/TD VACCINES (1 - Tdap) 09/17/1966 PNEUMOCOCCAL VACCINE 50+ YEARS (1 of 1 - PCV) 09/17/18 98 ZOSTER VACCINE (1 of 2) 09/17/1997 RSV VACCINE (60+ or ) (1 - 1-dose 75+ series) 09/17/2022 INFLUENZA VACCINE (#1) 2024 Insurance MEDICARE PART A AND B AET[employer] MEDICARE SUPP AESSI Care Teams Guest Services Officer Relationship Specialty Start Date End Date Alexsander Denny MD [address] [place] [phone] PCP - General Family Practice 02/23/17
--- NOTE | 2024-10-03 06:16 | WPDHPUPDATE1 ---
History and Physical Update Update Date/Time: 10/03/24 06:16 History and Physical has been reviewed, including an updated exam of the patient. There are NO changes in the patient's condition. Risks, benefits, and alternatives have been discussed and questions answered. Patient agrees to proceed with procedure.
[2024-10-03] MEDS: LACTATED RINGERS 1,000 ML 30 ML IV CONT ×2 (06:25→08:34)
--- NOTE | 2024-10-03 07:12 | WPDANESEPPF ---
Anes - Initial Pre Proc Eval Procedure: Operation Date: 10/03/24 07:30 Proposed Procedures p Trans Urethral Resection Bladder Tumor with Gemcitabine Instillation - Orlando Reyes MD Date/Time: 10/03/24 07:12 Surgeon: Orlando Reyes MD Pre Op Diagnosis: bladder tumor Patient Data Age: 79 Gender: M Height: 1.78 m Weight: 100.2 kg Last Vital Signs Temp 97.2 F L 10/03/24 06:00 Pulse 66 10/03/24 06:00 Resp 18 10/03/24 06:00 BP 141/65 H 10/03/24 06:00 Pulse Ox 98 10/03/24 06:00 O2 Del Method Room Air 10/03/24 06:00 Allergies Allergy/AdvReac Type Severity Reaction Status Date / Time No Known Allergies Allergy Verified 09/19/24 13:38 Home Medications ?Medication ?Instructions ?Recorded ?Confirmed ?Type albuterol sulfate 90 mcg/actuation 2 inh inhalation Q4H PRN shortness 06/11/24 10/03/24 Rx aerosol inhaler of breath or wheezing #8.5 grams sildenafil 100 mg tablet 100 mg PO DAILY PRN sexual 06/11/24 09/19/24 Rx activity #15 tabs Patient hx anesthesia problems: none Family hx anesthesia problems: none Results Review: All pre-operative results and documents have been reviewed as part of the pre-operative evaluation. [facility] Past Medical History Medical History Nicotine abuse Prediabetes Hyperlipemia Surgical History Surgical History History of neck surgery History of discectomy History of back surgery Medial meniscus tear left knee arthroscopy partial medial meniscectomy March 22, 2022 Family History Family History Father Diabetes mellitus Family history of Alzheimer's disease Sibling Family history of elevated blood lipids Malignant neoplasm of prostate Multiple sclerosis Grandparent Family history of lung cancer Family history of malignant neoplasm of breast in first degree relative Social History Social History Smoking packs per day: 0.25 Smoking cigarettes per day: 5.0 Years smoked: 57 Smoking pack-years: 14.25 Smoking status: Former smoker Tobacco type: cigarettes Second hand tobacco smoke exposure: No Smoking end date: 07/10/20 Alcohol intake: current Drinks per week: 1 Alcohol use details: 1 drink weekly Substance use: never Substance use type: does not use Lack of Transportation: No Lack of Food: Never True Current Housing: I Have Housing Concerned About Future Housing: No Difficulty Paying Gas/Electric Bills: No Difficulty Paying for Meds: No Currently Unemployed: No Education: High School Diploma/GED Difficulty w/ Childcare or Family Care: No Living arrangements: with family Occupation/Education: retired Gender identity (if verbalized by the patient): Male Sexual Orientation (if Verbalized by the Patient): Straight or Heterosexual Spiritual care concerns: No Anes - Eval Final PreProcedure Day of Procedure 10/03/24 07:12 Patient weight: obese Lungs: normal air movement Airway: Mallampati scale class II and special considerations (Edentulous. ) Neurological: alert and oriented Last oral intake: >/= 8 hours ASA classification: III Emergent: no Anesthetic plan: proceed Anesthesia type and monitoring: general LMA and standard monitoring Other findings: COPD, ex smoker, borderline hyperlipidemia. Results Review: All pre-operative results and documents have been reviewed as part of the pre-operative evaluation. Informed Consent: The patient's anesthetic plan and its attendant risks and benefits were discussed with the patient/family/POA. Questions were solicited and answers provided to the satisfaction of the patient/family/POA.
[2024-10-03] MEDS: ceFAZolin 2 GM/D5W 50 ML 2 GM/50 ML BAG IVPB (07:25)
--- NOTE | 2024-10-03 07:50 | W.PM.PROC2 ---
Procedure Note - Detailed Date of Procedure 10/03/24 Pre-op Diagnosis Bladder tumor Post-op Diagnosis Same Procedure Performed TURBT (medium, 3cm) Surgeon Orlando Reyes MD Anesthesia General Description of Procedure The patient was brought to the operative suite where he is prepped and draped in a routine sterile fashion while in the dorsal lithotomy position. This is done after the uneventful administration of general LMA anesthetic. 2% Xylocaine jelly is introduced intraurethrally and allowed to stand for an appropriate period of time. A 24F resectoscope sheath was placed in the bladder and the bladder is circumferentially inspected carefully. 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 This area is resected in its entirety with an attempt made to include detrusor muscle for pathological evaluation of invasion. The base and periphery of this resected side is cauterized with a loop electrode. The bladder is emptied and the resectoscope was removed. An 18F urethral catheter was placed to drainage. The patient is taken to the recovery room having tolerated this procedure well. Drains No Pathology Yes Complications No immediate complications
--- NOTE | 2024-10-03 07:53 | P.OP_ITS ---
Procedure Note - Detailed Date of Procedure 10/03/24 Pre-op Diagnosis Bladder tumor Post-op Diagnosis Same Procedure Performed Gemcitabine instillation Surgeon Orlando Reyes MD Anesthesia General and None Description of Procedure With the patient in the supine position, a 16F Monson catheter is placed using s terile technique. Using a protective facemask, gown and double layer of gloves Gemcitabine 2gm in 100cc saline is administered through the catheter/into the bladder. The catheter is then plugged. Patient was instructed to lie supine x20min, then to roll both the left and right x20 min. each. Total dwell time will be 60 min., after which the bladder will be drained and catheter removed. Drains No Pathology None sent Condition Stable
[2024-10-03] MEDS: SODIUM CHLORIDE 0.9% IV 23.7 ML, GEMCITABINE HCL 1,000 MG BLADDER ×2 (08:12)
[2024-10-03] MEDS: fentaNYL CITRATE INJ (*CRX) 100 MCG/2 ML VIAL 25 MCG IV PUSH ×2 (08:23→08:36)
--- NOTE | 2024-10-03 09:22 | SUR.PHASEI ---
0912 - arteaga drained. 150cc of NS instilled. catheter removed. pt lucio well
[2024-10-03] MEDS: oxyCODONE HCL (*CRX) 5 MG TAB IR PO (09:48)
== END 2024-10-03 10:29 | disposition home or self-care (01) ==
PROVIDERS: PCP Family Medicine; Visit Provider Urology
PROC: 0TBB8ZZ Excision of Bladder, Via Natural or Artificial Opening Endoscopic (ICD-10-PCS; CPT 52235; principal; 2024-10-03 07:30)
DX: C67.8 Malignant neoplasm of overlapping sites of bladder (principal); E78.5 Hyperlipidemia, unspecified; R73.03 Prediabetes; E66.9 Obesity, unspecified; Z68.31 Body mass index [BMI] 31.0-31.9, adult; Z79.51 Long term (current) use of inhaled steroids; Z98.890 Other specified postprocedural states; Z98.1 Arthrodesis status; Z87.891 Personal history of nicotine dependence; Z80.42 Family history of malignant neoplasm of prostate; Z80.3 Family history of malignant neoplasm of breast; Z80.1 Family history of malignant neoplasm of trachea, bronchus and lung
CPT/HCPCS: 52235; 51720; 88305; A9270; J0690; J1100; J2003; J2405; J2704; J3010; J7120; J9201

== ENCOUNTER 2025-03-31 16:26 | Outpatient (CLI) | payer MEDICARE, SELFPAY ==
--- NOTE | ~2025-03-31 | US_ITS ---
EXAMINATION: US soft tissue UE RT COMPARISON: None HISTORY: mass at ring finger MPJ flexion crease TECHNIQUE: Multiple yanez scale and color Doppler sonographic images obtained FINDINGS: Correlating with the palpable area there is a cystic focus associated with the anterior dorsal aspect of the metacarpal joint measuring 5 x 5 x 3 mm with no abnormal flow and no gross communication with the adjacent joint space. IMPRESSION: Nonspecific cystic focus possibly atypical ganglion. MRI recommended to further assess. Reviewed, dictated and finalized at location A. IMPRESSION: Nonspecific cystic focus possibly atypical ganglion. MRI recommende d to further assess.
--- OUTSIDE RECORDS SUMMARY | 2025-03-31 16:28 | XMS_ITS | Clinical Summary ---
Author Organization [facility] [employer] Address [address] [place] [address] Care Team Providers Care Accountant Clerk Name Role Phone Alexsander Denny MD Primary Care Provider [phone] Source Comments [facility],non-owned Affiliates and Associated Physician Practices is amultiple site organization consisting of ambulatory clinics and hospital sitesin [place], [place], [place] and [place]. This disclosure is being madepursuant to the Care Everywhere program and may not contain all information available regarding this patient. 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 Gender Identity Not on file Sexual Orientation Not on file Plan of Treatment Health Maintenance Due Date Last Done Comments HEPATITIS C SCREENING 09/13/1965 DTAP/TDAP/TD VACCINES (1 - Tdap) 09/17/1966 PNEUMOCOCCAL VACCINE 50+ (1 of 1 - PCV) 09/17/1997 ZOSTER VACCINE (1 of 2) 09/17/1997 Respiratory Syncytial Virus (RSV) Vaccine Pt: or over 60 yrs (1 - 1-dose 75+ series) 09/17/2022 DEPRESSION SCREENING 07/10/2024 MEDICARE AWV CALENDAR YEAR 2024 COVID-19 VACCINE ( - 2023-2 5 season) 2025 INFLUENZA VACCINE (#1) 2025 HEPATITIS B VACCINE Aged Out No longe [...] on patient's age to complete this topic Insurance AETNA AETNA MEDICARE ADV SELF PAY NO INSURANCE Member Subscriber Plan / Payer (Ef fective for All Dates) Name:Sandhya Morales Member ID:Not on file Relation to Subscriber:Not on file Name:SANDHYA MORALES Subscriber ID:Not on file (Home) Address: [address] [place] [id number] Payer ID:Not on file Group ID:Not on file Type:Self Pay Address: [place], [place] Care Teams Accountant Clerk Relationship Specialty Start Date End Date Alexsander Denny MD [address] [place] [address] [facility] - General 10/27/21
--- OUTSIDE RECORDS SUMMARY | 2025-03-31 16:28 | XMS_ITS | Clinical Summary ---
Author Organization [facility] Address [address] [place] [phone] Phone Care Team Providers Care Segmental Paver Installer Name Role Phone Alexsander Denny MD Primary Care Provider [phone] Social History Tobacco Use Types Packs/Day Years [...] 1-dose 75+ series) 09/17/2022 INFLUENZA VACCINE (#1) 2025 Insurance MEDICARE PART A AND B AETNA MEDICARE SUPP AESSI Care Teams Segmental Paver Installer Relationship Specialty Start Date End Date Alexsander Denny MD [address] [place] [address] PCP - General Family Practice 02/23/17
== END 2025-03-31 16:27 | disposition home or self-care (01) ==
PROVIDERS: PCP Family Medicine; Visit Provider Physician Assistant Surgical
DX: N60.11 Diffuse cystic mastopathy of right breast (principal); R22.31 Localized swelling, mass and lump, right upper limb
CPT/HCPCS: 76882

== ENCOUNTER 2025-05-07 08:59 | Outpatient (CLI) | payer MEDICARE, SELFPAY ==
--- NOTE | 2025-05-07 09:22 | ECG_ITS ---
Test Date: 2025-05-07 09:29:32 Measurements Intervals [place] Rate: 52 P: 59 TN: 187 QRS: 28 QRSD: 102 T: 71 QT: 404 QTc: 378 Interpretive Statements SINUS BRADYCARDIA BASELINE ARTIFACT- I, II, III, AVR, AVL BORDERLINE ECG No previous ECG available for comparison Electronically Signed On 05-07-2025 10:33:31 CDT by Lennox Garcia D.O.
--- OUTSIDE RECORDS SUMMARY | 2025-05-07 09:40 | XMS_ITS | Clinical Summary ---
Author Organization [facility] Address [address] [place] [phone] Phone Care Team Providers Care Family Assistant Name Role Phone Alexsander Denny MD Primary Care Provider [phone] Social History Tobacco Use Types Packs/Day Years [...] B AETNA MEDICARE SUPP AESSI Care Teams Family Assistant Relationship Specialty Start Date End Date Alexsander Denny MD [address] [place] [address] PCP - General Family Practice 02/23/17
== END 2025-05-07 09:00 | disposition home or self-care (01) ==
LOC: ANHSURGERY 09:00
PROVIDERS: PCP Family Medicine; Visit Provider Urology
DX: R94.31 Abnormal electrocardiogram [ECG] [EKG] (principal); I10 Essential (primary) hypertension
CPT/HCPCS: 93005

== ENCOUNTER 2025-05-09 00:13 | Day surgery (SDC) | payer MEDICARE, OTHER, SELFPAY ==
[2025-05-06 13:34] VITALS: BMI 30.7
--- NOTE | 2025-05-06 13:56 | PC.NURSE ---
[facility] has started construction of its new state of the art ER which will open Spring 2026. With this, we anticipate parking may be a challenge for some our surgical patients and families. Parking spaces are limited but are available for all Surgical, obstetrics, and ER patients sharing this lot. If you arrive and find you are having a hard time finding a parking space, please note that we understand the challenges, please drive around the hospital and park near Hospital Entrance 1. When you enter this entrance, you can ask a volunteer to direct or take you back to the surgical waiting area to check in. We appreciate everyone?s understanding of these expected challenges while we build for your future. Report to the Outpatient Waiting Room, entrance under the green pavilion located off [address], at time _6:00AM____ on date __05/09/25___. Planned Procedure Time: ___7:30AM___.? Time changes happen often and if your time is changed the preop area will call you the afternoon before. - You and your visitor will be asked to self-screen and do not enter if you have any COVID symptoms. Please call surgeon if you need to reschedule. - A mask is optional within the hospital at this time. Patients may have clear liquids (water, carbonated beverages, clear teas, apple juice) until 3 hours prior to surgery (4:30AM) with a maximum of 20 ounces. - No food from midnight until time of surgery and no smoking, or chewing tobacco (or any form of nicotine). No chewing gum, candy or mints. Take only the following medications with a SIP of water on the morning of surgery: __ALBUTEROL INHALER NEEDED DO NOT STOP ANY OF YOUR OTHER PRESCRIPTION MEDICATIONS PRIOR TO SURGERY EXCEPT THE FOLLOWING Hold all vitamins and supplements for 3 days per anesthesiologist. Medications to discontinue per physician ____HOLD ALEVE/NAPROXEN(ALL NSAIDS) 7 DAYS PRE-OP PER DR MOSQUEDA Date to take last dose 05/01/25 Please no make-up, nail czech, hairspray, perfume, deodorant, or body powder the day of surgery.? No jewelry (including any body piercings) or valuables the day of surgery, leave them at home.? Please take a shower or bath the night before, or the morning of, surgery with an antibacterial soap.? Wear comfortable, loose fitting clothing.? - Jewelry must be removed prior to entering the operating room.? Rings and piercings that are not removed may be cut off. - The hospital will not accept responsibility for valuables.? - Please leave all valuables, including medications, at home the day of surgery. If you are going home after surgery, a licensed courtesy car driver must drive you home.? - NO public transportation without another adult if you receive anesthesia. - We recommend that an adult stay with you for 24 hours following discharge. - We also recommend that you do not drive, make important decision, drink alcoholic beverages, or take any drugs that were not prescribed by your health care provider for at least 24 hours after your discharge time. Follow any additional instructions given to you from your surgeon. Telephone instructions given to ____PATIENT and asked if any additional questions and then verbalized understanding. Patient advised to call surgeon office or pre surgery nurse liaison [phone] if any additional questions.
[2025-05-09] VITALS (14 sets, daily range): BP systolic 117–153; BP diastolic 60–86; PULSE 52–71; RESP 12–20; TEMP 36.3–36.4; O2SAT 95–100
--- OUTSIDE RECORDS SUMMARY | 2025-05-09 00:15 | XMS_ITS | Clinical Summary ---
Author Organization [facility] Address [address] [place] [address] Care Team Providers Care Peoplesoft Hcm Developer Name Role Phone Alexsander Denny MD Primary Care Provider [phone] Source Comments [facility] [employer],non-owned Affiliates and Associated Physician Practices is amultiple site organization consisting of ambulatory clinics and hospital sitesin [place], [place], [place] and [place]. This disclosure is being madepursuant to the Care Everywhere program and may not contain all information available regarding this patient. 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
--- OUTSIDE RECORDS SUMMARY | 2025-05-09 00:15 | XMS_ITS | Clinical Summary ---
Author Organization [facility] Address [address] [place] [phone] Phone Care Team Providers Care Deputy Court Clerk Name Role Phone Alexsander Denny MD Primary Care Provider [phone] Social History Tobacco Use Types Packs/Day Years [...] B AETNA MEDICARE SUPP AESSI Care Teams Deputy Court Clerk Relationship Specialty Start Date End Date Alexsander Denny MD [address] [place] [address] PCP - General Family Practice 02/23/17
--- NOTE | 2025-05-09 06:17 | WPDHPUPDATE1 ---
History and Physical Update Update Date/Time: 05/09/25 06:17 History and Physical has been reviewed, including an updated exam of the patient. There are NO changes in the patient's condition. Risks, benefits, and alternatives have been discussed and questions answered. Patient agrees to proceed with procedure.
[2025-05-09] MEDS: LACTATED RINGERS 1,000 ML 30 ML IV CONT ×2 (06:30→11:00)
--- NOTE | 2025-05-09 06:51 | P.HP_ITS ---
History of Present Illness History of Present Illness Consent: Risks, benefits, and alternatives have been discussed and questions answered. Patient agrees to proceed with procedure. Chief complaint: bladder tumor Narrative: Robby Morales is a 79 year old male: 09/2024: ??CT-abd/pelvis wo/ contrast: normal upper tracts / 2.5cm bladder mass ?1st TURBT: ?Ta, High-Grade / No muscle identified ?Will recommend iBCG +/- re-resections vs. surveillance cysto ?SDM: pt. opts against iBCG / will f/u 3-months for surveillance cysto. 01/2025: ?Cysto: no recurrent UC (small clot in bladder) ?Cytology: normal ?FISH: positive ?Pt. agrees to iBCG ?- ?repeat cysto. 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 ?This, despite having undergone intravesical BCG for 6 weeks. ?Will schedule TURBT with gemcitabine installation Review of Systems Review of Systems: All systems reviewed & are unremarkable except as noted in HPI and below PMFSH Past Medical History Medical History Nicotine abuse Prediabetes Hyperlipemia Surgical History Surgical History History of neck surgery History of discectomy History of back surgery Medial meniscus tear left knee arthroscopy partial medial meniscectomy March 22, 2022 Family History Family History Father Diabetes mellitus Family history of Alzheimer's disease Sibling Family history of elevated blood lipids Malignant neoplasm of prostate Multiple sclerosis Grandparent Family history of lung cancer Family history of malignant neoplasm of breast in first degree relative Social History Social History Social History: Caffeine-soda Smoking packs per day: 0.30 Smoking cigarettes per day: 6.0 Years smoked: 50 Smoking pack-years: 15.00 Smoking status: Former smoker Tobacco type: cigarettes Second hand tobacco smoke exposure: No Smoking end date: 01/07/22 Alcohol intake: current Drinks per week: 1 Alcohol use details: 1 drink weekly Substance use: never Substance use type: does not use Lack of Transportation: No Lack of Food: Never True Current Housing: I Have Housing Concerned About Future Housing: No Difficulty Paying Gas/Electric Bills: No Difficulty Paying for Meds: No Currently Unemployed: No Education: High School Diploma/GED Difficulty w/ Childcare or Family Care: No Living arrangements: with family Additional living arrangements comments: Occupation/Education: retired Gender identity (if verbalized by the patient): Male Sexual Orientation (if Verbalized by the Patient): Straight or Heterosexual Spiritual care concerns: No Meds Home Medications and Allergies Home Medications ?Medication ?Instructions ?Recorded ?Confirmed ?Type sildenafil 100 mg tablet 100 mg PO DAILY PRN sexual 1 08/12/23 05/06/25 Rx activity #15 tabs lisinopril 20 mg tablet 20 mg PO DAILY #90 tabs /10/0105/06/25 Rx albuterol sulfate 90 mcg/actuation See Rx Instructions .Route 12/30/24 05/06/25 Rx aerosol inhaler .COMPLEX #8.5 ea naproxen sodium 220 mg capsule 440 mg PO Q8-12H PRN pa in 05/06/25 05/06/25 History (Aleve) Allergies Allergy/AdvReac Type Severity Reaction Status Date / Time No Known Allergies Allergy Verified 05/06/25 13:32 Exam Const: General: no acute distress Resp: Effort & Inspection: normal respiratory effort GI: Inspection: non-distended GI Palp: No abdominal tenderness and No Guarding due to palpation present (GI) Auscultation: normal bowel sounds Assessment and Plan Assessment and plan (1) Cancer of overlapping sites of bladder: Code(s): C67.8 - Malignant neoplasm of overlapping sites of bladder Status: Acute Assessment and Plan: * TURBT followed by gemcitabine installation
--- NOTE | 2025-05-09 06:52 | WPDHPUPDATE1 ---
History and Physical Update Update Date/Time: 05/09/25 06:52 History and Physical has been reviewed, including an updated exam of the patient. There are NO changes in the patient's condition. Risks, benefits, and alternatives have been discussed and questions answered. Patient agrees to proceed with procedure.
--- NOTE | 2025-05-09 07:01 | WPDANESEPPF ---
Anes - Initial Pre Proc Eval Procedure: Operation Date: 05/09/25 07:30 Proposed Procedures p Trans Urethral Resection Bladder Tumor with Gemcitabine Instillation - Orlando Reyes MD Date/Time: 05/09/25 07:01 Surgeon: Orlando Reyes MD Pre Op Diagnosis: bladder tumor Patient Data Age: 79 Gender: M Height: 1.78 m Weight: 97 kg Allergies Allergy/AdvReac Type Severity Reaction Status Date / Time No Known Allergies Allergy Verified 05/06/25 13:32 Home Medications ?Medication ?Instructions ?Recorded ?Confirmed ?Type sildenafil 100 mg tablet 100 mg PO DAILY PRN sexual 06/11/24 05/06/25 Rx activity #15 tabs lisinopril 20 mg tablet 20 mg PO DAILY #90 tabs 11/19/24 05/06/25 Rx albuterol sulfate 90 mcg/actuation See Rx Instructions .Route 12/30/24 05/06/25 Rx aerosol inhaler .COMPLEX #8.5 ea naproxen sodium 220 mg capsule 440 mg PO Q8-12H PRN pain 05/06/25 05/06/25 History (Aleve) Patient hx anesthesia problems: none Family hx anesthesia problems: none Results Review: All pre-operative results and documents have been reviewed as part of the pre-operative evaluation. [facility] Past Medical History Medical History (Updated 05/09/25 @ 07:02 by Randy Singh MD) Obesity HTN (hypertension) Nicotine abuse Prediabetes Hyperlipemia Surgical History Surgical History History of neck surgery History of discectomy History of back surgery Medial meniscus tear left knee arthroscopy partial medial meniscectomy March 22, 2022 Family History Family History Father Diabetes mellitus Family history of Alzheimer's disease Sibling Family history of elevated blood lipids Malignant neoplasm of prostate Multiple sclerosis Grandparent Family history of lung cancer Family history of malignant neoplasm of breast in first degree relative Social History Social History Social History: Caffeine-soda Smoking packs per day: 0.30 Smoking cigarettes per day: 6.0 Years smoked: 50 Smoking pack-years: 15.00 Smoking status: Former smoker Tobacco type: cigarettes Second hand tobacco smoke exposure: No Smoking end date: 01/07/22 Alcohol intake: current Drinks per week: 1 Alcohol use details: 1 drink weekly Substance use: never Substance use type: does not use Lack of Transportation: No Lack of Food: Never True Current Housing: I Have Housing Concerned About Future Housing: No Difficulty Paying Gas/Electric Bills: No Difficulty Paying for Meds: No Currently Unemployed: No Education: High School Diploma/GED Difficulty w/ Childcare or Family Care: No Living arrangements: with family Additional living arrangements comments: Occupation/Education: retired Gender identity (if verbalized by the patient): Male Sexual Orientation (if Verbalized by the Patient): Straight or Heterosexual Spiritual care concerns: No Anes - Eval Final PreProcedure Day of Procedure 05/09/25 07:01 Patient weight: obese Heart: regular rate and rhythm Lungs: clear to auscultation Airway: Mallampati scale class II Neurological: alert and oriented Last oral intake: >/= 8 hours ASA classification: III Emergent: no Anesthesia type and monitoring: general LMA and standard monitoring Results Review: All pre-operative results and documents have been reviewed as part of the pre-operative evaluation. Informed Consent: The patient's anesthetic plan and its attendant risks and benefits were discussed with the patient/family/POA. Questions were solicited and answers provided to the satisfaction of the patient/family/POA.
[2025-05-09] MEDS: ceFAZolin 2 GM in SODIUM CHLORIDE 0.9% IV 50 ML 100 ML IVPB (07:29)
[2025-05-09] MEDS: LIDOCAINE 2% GEL UROJET 10 ML PKG MUCOUS MEM (07:29)
--- NOTE | 2025-05-09 07:55 | S_PTH ---
PATIENT: Robby Morales LOC: [facility] U#:[id number] AGE/SX: 79/M ROOM: RE05/09/[address]: Orlando Reyes MD : 1945 BED: DIS: 05/09/2025 SPEC #: [id number] RECD: 05/09/25 09:56 STATUS: JOVANI RESherri #: [id number] DAINA: 05/09/25 07:[address]: Orlando Reyes DEPT: [facility] Surgical RECD BY: Trixie Franks ENTERED: 05/09/25 09:56 SP TYPE: Surgical OTHR DR: Katarina Munoz DO Tissues: A - Bladder TURBT B - Stone Procedures: Gross Exam Level 1 Hematoxylin and Eosin Stain Gross and Microscopic Level 5 Crystalline Analysis
[2025-05-09] MEDS: SODIUM CHLORIDE 0.9% IV 23.7 ML, GEMCITABINE HCL 1,000 MG BLADDER ×2 (08:05→08:06)
[2025-05-09] MEDS: fentaNYL CITRATE INJ (*CRX) 100 MCG/2 ML VIAL 25 MCG IV PUSH ×6 (08:08→09:08)
--- NOTE | 2025-05-09 08:19 | W.PM.PROC2 ---
Procedure Note - Detailed Date of Procedure 05/09/25 Pre-op Diagnosis Recurrent bladder tumor Post-op Diagnosis Same Procedure Performed TURBT (small, 2cm), cystoscopy/bladder stone extraction Surgeon Orlando Reyes MD Anesthesia General Findings 1. 2cm bladder tumor in dome/midline 2. Small bladder stone (1.5cm) Description of Procedure patient is brought to the operative suite was prepped and draped in routine sterile fashion while in dorsal lithotomy position after the uneventful induction of a general LMA anesthetic. Twenty-four F resectoscope was placed in his bladder. I immediately see a small bladder stone in the dependent portion probably measures 1.5-2 cm. This was extracted using loop component of the resectoscope. We then turned our attention to the recurrent neoplasm in his bladder dome. This is resected in its entirety with attempt made to include detrusor muscle for pathological evaluation of invasion. Base and periphery was cauterized. Resectoscope was removed an 18 F Monson catheter was placed to drainage. Drains Yes Packing No Pathology Yes Complications No immediate complications
--- NOTE | 2025-05-09 08:23 | W.PM.PROC2 ---
Procedure Note - Detailed Date of Procedure 05/09/25 Pre-op Diagnosis Bladder tumor Post-op Diagnosis Same Procedure Performed Gemcitabine installation Surgeon Orlando Reyes MD Anesthesia General Description of Procedure With the patient in the supine position, a 16F Monson catheter is placed using sterile technique. Using a protective facemask, gown and double layer of gloves Gemcitabine 2gm in 100cc saline is administered through the catheter/into the bladder. The catheter is then plugged. Patient was instructed to lie supine x20min, then to roll both the left and right x20 min. each. Total dwell time will be 60 min., after which the bladder will be drained and catheter removed. Drains No
[2025-05-09] MEDS: NACL 0.9% IRRIGATION POUR BOTTL 1,000 ML 150 ML IRRIGATION (09:05)
--- NOTE | 2025-05-09 09:15 | SUR.PHASEI ---
0905 - pt rotated every 15 minutes from back to left side to stomach and to rt side as ordered by Dr. Reyes. pt lucio well
--- NOTE | 2025-05-09 12:05 | SUR.PHASEII ---
Notified Dr. Reyes of bladder scan 408. Dr. Reyes at bedside to speak to patient and patient's .
== END 2025-05-09 12:40 | disposition home or self-care (01) ==
PROVIDERS: PCP Family Medicine; Visit Provider Urology
PROC: 0TBB8ZZ Excision of Bladder, Via Natural or Artificial Opening Endoscopic (ICD-10-PCS; CPT 52234; principal; 2025-05-09 07:30)
DX: C67.1 Malignant neoplasm of dome of bladder (principal); N21.0 Calculus in bladder; Z87.891 Personal history of nicotine dependence; E66.9 Obesity, unspecified; Z68.31 Body mass index [BMI] 31.0-31.9, adult
CPT/HCPCS: 52234; 51720; 82365; 88300; 88307; J0690; J1100; J2405; J2704; J3010; J7120; J9201

== ENCOUNTER 2025-06-10 08:13 | Outpatient (CLI) | payer MEDICARE, OTHER, SELFPAY ==
--- OUTSIDE RECORDS SUMMARY | 2025-06-10 08:18 | XMS_ITS | Clinical Summary ---
Author Organization [facility] [employer] Address [address] [place] [address] Care Team Providers Care Operating Room Specialist Name Role Phone Alexsander Denny MD Primary Care Provider [phone] Source Comments [facility] [employer],non-owned Affiliates and Associated Physician Practices is amultiple site organization consisting of ambulatory clinics and hospital sitesin [place], [place], [place] and [place]. This disclosure is being madepursuant to the Care Everywhere program and may not contain all information available regarding this patient. 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 Gender Identity Not on file Sexual Orientation [...] CALENDAR YEAR 2024 COVID-19 VACCINE ( - 2024-2 6 season) 2025 INFLUENZA VACCINE (#1) 2025 HEPATITIS [...] / Payer (Ef fective for All Dates) Name:Robby Morales Member ID:Not on file Relation to Subscriber:Not on file Name:ROBBY MORALES Subscriber ID:Not on file (Home) Address: [address] [place] [id number] Payer ID:Not on file Group ID:Not on file Type:Self Pay Address: [place], [place] [employer] Care Teams Operating Room Specialist Relationship Specialty Start Date End Date Alexsander Denny MD [address] [place] [address] PCP - General 10/27/21
--- OUTSIDE RECORDS SUMMARY | 2025-06-10 08:18 | XMS_ITS | Clinical Summary ---
Author Organization [facility] Address [address] [place] [phone] Phone Care Team Providers Care Rn Transport Name Role Phone Alexsander Denny MD Primary Care Provider [phone] Social History Tobacco Use Types Packs/Day Years [...] B AETNA MEDICARE SUPP AESSI Care Teams Rn Transport Relationship Specialty Start Date End Date Alexsander Denny MD [address] [place] [address] PCP - General Family Practice 02/23/17
[2025-06-10 12:56] LABS: Hematocrit 38.9 % (42.0-52.0); Hemoglobin 12.4 g/dL (14.0-18.0); Mean Corpuscular HGB Conc 31.9 g/dl (32-36); Mean Corpuscular Hemoglobin 31.9 pg (26-34); Mean Corpuscular Volume 100.0 fl (80-100); Platelet Count Result 170 k/mm3 (150-375); Red Blood Count 3.89 M/mm3 (4.6-6.20); White Blood Count 5.4 K/mm3 (4.5-10.0)
[2025-06-10 13:05] LABS: Alanine Aminotransferase 36 U/L (6-50); Albumin Level 3.9 g/dL (3.5-5.1); Alkaline Phosphatase 146 U/L (38-126); Anion Gap 3 mmol/L (4-12); Aspartate Amino Transferase 47 U/L (17-59); Bilirubin,Total 0.6 mg/dL (0.2-1.3); Blood Urea Nitrogen 23 mg/dL (9-20); Calcium 9.3 mg/dL (8.4-10.2); Carbon Dioxide 29 mmol/L (22-30); Chloride 108 mmol/L (98-107); Cholesterol 181 mg/dL (0-200); Estimated Glomerular Filt Rate 60; Glucose 111 mg/dL (65-110); HDL Direct 49 mg/dL; Potassium 4.3 mmol/L (3.4-5.0); Sodium 140 mmol/L (137-145); Total Protein 7.0 g/dL (6.3-8.2); Triglycerides 74 mg/dL (<150)
[2025-06-10 13:30] LABS: MALB Creatinine Ratio 11.0 mg/g (0-30)
[2025-06-10 13:37] LABS: Hemoglobin A1C 6.2 % (<5.7)
[2025-06-10 13:41] LABS: Thyroid Stimulating Hormone 1.480 uIU/mL (0.465-4.680)
== END 2025-06-10 08:14 | disposition home or self-care (01) ==
PROVIDERS: PCP Family Medicine; Visit Provider Family Medicine
DX: E78.5 Hyperlipidemia, unspecified (principal); I10 Essential (primary) hypertension; E11.9 Type 2 diabetes mellitus without complications; E03.9 Hypothyroidism, unspecified
CPT/HCPCS: 36415; 80053; 80061; 82043; 83036; 84443; 85027

== ENCOUNTER 2025-06-24 11:11 | Outpatient (CLI) | payer MEDICARE, OTHER, SELFPAY ==
--- OUTSIDE RECORDS SUMMARY | 2025-06-24 13:37 | XMS_ITS | Clinical Summary ---
Author Organization [facility] Address [address] [place] [address] Care Team Providers Care Call Box Wirer Name Role Phone Alexsander Denny MD Primary Care Provider [phone] Source Comments [facility],non-owned Affiliates and Associated Physician Practices is amultiple site organization consisting of ambulatory clinics and hospital sitesin [place], [place], [place] and [place]. This disclosure is being madepursuant to the Care Everywhere program and may not contain all information available regarding this patient. 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
--- OUTSIDE RECORDS SUMMARY | 2025-06-24 13:37 | XMS_ITS | Clinical Summary ---
Author Organization [facility] Address [address] [place] [id number] Phone Care Team Providers Care Produce Assistant Name Role Phone Alexsander Denny MD Primary Care Provider [phone] Social History Tobacco Use Types Packs/Day Years [...] B [employer] MEDICARE SUPP AESSI Care Teams Produce Assistant Relationship Specialty Start Date End Date Alexsnader Denny MD [address] [place] [place] [address] PCP - General Family Practice 02/23/17
[2025-06-24 19:16] LABS: Hematocrit 39.2 % (42.0-52.0); Hemoglobin 12.8 g/dL (14.0-18.0); Mean Corpuscular HGB Conc 32.7 g/dl (32-36); Mean Corpuscular Hemoglobin 32.1 pg (26-34); Mean Corpuscular Volume 98.2 fl (80-100); Platelet Count Result 181 k/mm3 (150-375); Red Blood Count 3.99 M/mm3 (4.6-6.20); White Blood Count 4.9 K/mm3 (4.5-10.0)
[2025-06-24 19:38] LABS: Iron 107 ug/dL (49-181)
[2025-06-24 19:49] LABS: Percent Iron Saturation 33 % (20-50)
[2025-06-24 20:19] LABS: Ferritin 67.70 ng/mL (11.1-264)
== END 2025-06-24 11:12 | disposition home or self-care (01) ==
LOC: ANHGOSHLAB 11:11
PROVIDERS: PCP Family Medicine; Visit Provider Family Medicine
DX: E78.5 Hyperlipidemia, unspecified (principal); D64.9 Anemia, unspecified
CPT/HCPCS: 36415; 82728; 83540; 83550; 85027

== ENCOUNTER 2025-07-01 12:41 | Outpatient (CLI) | payer MEDICARE, SELFPAY ==
--- NOTE | ~2025-07-01 | CT_ITS ---
EXAMINATION:CT lung screening DATE: 07/01/2025 12:56 INDICATION: Personal history of nicotine dependence. TECHNIQUE: Computed tomography (CT) of the chest was performed without intravenous contrast. Automated exposure control and iterative reconstruction technique were employed. The dose-length product (DLP) was 204.48 mGy-cm. COMPARISON: CT abdomen and pelvis 08/13/2024 FINDINGS: There is calcified scarring at the lung apices. There is mild emphysema. There is mild atelectasis bilaterally. No pleural effusion. There is mild bilateral gynecomastia. The heart size is normal. There are coronary artery calcifications. No pericardial effusion. There is a small sliding hiatal hernia. There is a 6 mm stone in right kidney. There is moderate thoracic spondylosis. There is mild chronic anterior wedging of multiple vertebral bodies. There are changes of anterior fusion procedure in cervical spine. IMPRESSION: 1. Lung-RADS category 2: Benign appearance or behavior. Continue annual screening with noncontrast low-dose chest CT in 12 months. Reviewed, dictated and finalized at location E. NT SERVICE AND CONSULTING MANAGER IMPRESSION: 1. Lung-RADS category 2: Benign appearance or behavior. Continue annual screeni ng with noncontrast low-dose chest CT in 12 months.
== END 2025-07-01 12:42 | disposition home or self-care (01) ==
LOC: MICIMG 12:42
PROVIDERS: PCP Family Medicine; Visit Provider Family Medicine
DX: Z12.2 Encounter for screening for malignant neoplasm of respiratory organs (principal); Z87.891 Personal history of nicotine dependence
CPT/HCPCS: 71271